=== PATIENT | male | born 1970 | race Caucasian/White ===

== ENCOUNTER 2016-10-15 06:15 | Day surgery (SDC) | payer MEDICARE ==
[2016-10-10 13:03] LABS: HEMATOCRIT 43.4 % (40.0-51.0); HEMOGLOBIN 14.2 g/dL (13.6-17.8)
--- NOTE | ~2016-10-15 | OP ---
Record Of Operation [facility] [address] [facility] [place]. [address] NAME: OG LEYVA II : 70 STATUS : REG [facility] PAT#: [id number] AGE: 45 ADM/REG DATE : 10/15/16 MR#: [id number] REPORT SERV DATE: 10/15/16 DICTATED BY: JUANCARLOS MONTERROSO DATE: 10/15/16 REPORT STATUS : Draft TRANSCRIBED BY: MODL DATE: 10/15/16 DATE OF PROCEDURE: 10/15/2016 PREOPERATIVE DIAGNOSES: 1. Left chronic otitis media with effusion. 2. Conductive hearing loss, left ear. 3. Bilateral chronic frontal sinusitis. 4. Bilateral chronic ethmoid sinusitis. 5. Bilateral chronic maxillary sinusitis. 6. Bilateral chronic sphenoid sinusitis. POSTOPERATIVE DIAGNOSES: 1. Left chronic otitis media with effusion. 2. Conductive hearing loss, left ear. 3. Bilateral chronic frontal sinusitis. 4. Bilateral chronic ethmoid sinusitis. 5. Bilateral chronic maxillary sinusitis. 6. Bilateral chronic sphenoid sinusitis. PROCEDURE: 1. Bilateral endoscopic total ethmoidectomy. 2. Bilateral endoscopic maxillary sinus antrostomy with polyp removal. 3. Bilateral endoscopic frontal sinusotomy. 4. Bilateral endoscopic sphenoidotomy. 5. Left myringotomy with tube placement. SURGEON: Juancarlos Monterroso M.D. ANESTHESIA: General. COMPLICATIONS: None. COUNTS: All counts correct following the procedure. ESTIMATED BLOOD LOSS: 25 mL. PREOPERATIVE INFORMED CONSENT: We discussed the risks and benefits of the surgery including, but not limited to bleeding, infection, possible CSF leak, possible ocular injury including blindness, possible recurrence of the polypoid disease requiring revision surgery. He understands the risks and benefits of surgery and consent is on chart. PROCEDURE IN DETAIL: The patient was brought to the operating suite, placed on the operative room table in supine position. General endotracheal anesthesia was initiated without incident. Left ear was addressed under the microscope. A myringotomy knife was used to make an incision in the anterior aspect of the pars tensa. Upon entering the middle ear space, a copious amount of clear fluid was suctioned from middle ear space until clear. Record Of Operation [facility] [address] [facility] [place]. [address] NAME: OG LEYVA II : 70 STATUS : REG [facility] PAT#: [id number] AGE: 45 ADM/REG DATE : 10/15/16 MR#: [id number] REPORT SERV DATE: 10/15/16 DICTATED BY: JUANCARLOS MONTERROSO DATE: 10/15/16 REPORT STATUS : Draft TRANSCRIBED BY: ASHA DATE: 10/15/16 Following this, a collar button ventilation tube was placed through the myringotomy site using alligator forceps. The attention was then taken to the nose and both the side of the nose were decongested using 1:1000 Adrenalin on pledgets. Then, the both inferior middle turbinate and uncinate processes were injected approximately 15 mL of 1% lidocaine and 1:100,000 epinephrine for hemostasis. Following this, on the left hand side of the nose using the Acclarent frontal sinus introducer, and using a transilluminated wire, the wire was advanced across the nasal frontal duct into the frontal sinus, and then once in place, the balloon was advanced over the wire, and dilated up to 10 atmospheres along the length of the nasofrontal duct. This was repeated on the right hand side in a similar fashion. Starting on the left had side the uncinate process was taken down using pediatric backbiting forceps and Xomed sinus shaver, and then there was noted to be extensive polypoid disease obstructing the maxillary sinus antrostomy and this was removed using the straight and backbiting Benjamin-Cut forceps, as well as Xomed sinus shaver. Then, the ethmoid bulla was opened widely using the Xomed sinus shaver. There was more copious polypoid disease within the ethmoid cavity, as well as allergic mucin. The basal lamella was then penetrated using Xomed sinus shaver. Then working from a posterior and anterior fashion along the lamina papyracea, the posterior and anterior ethmoid air cells were marsupialized. Following this, adrenaline-soaked pledget was placed in the middle ear space. Attention was taken the right side of nose in a fashion as described on the left, the right uncinate process was taken down as well as extensive polypoid disease obstructing the maxillary sinus antrostomy site, this was removed using straight and backbiting Benjamin-Cut forceps, as well as the Xomed sinus shaver. Then, the ethmoid bulla was opened widely using the Xomed sinus shaver, working from posterior and anterior fashion along the lamina papyracea, the posterior and anterior ethmoid air cells were marsupialized. The middle meatus was then packed with adrenaline soaked pledgets and then the attention was taken to sphenoid. Using again the Acclarent introducer, starting on the left hand side, then sphenoid sinus ostium was identified, and the wire was advanced across the ostium, then balloon was advanced over the wire, and dilated up to 10 atmospheres. This was repeated on the right hand side in a similar fashion. Then, the adrenaline packing was removed from both sides of the nose. Then, a Propel steroids stent was placed in both maxillary sinuses, as well as the ethmoid cavity bilaterally. The nasopharynx was suctioned free of any blood clots. The patient awakened from anesthesia and taken to recovery room in stable condition. ÁNGEL/ASHA Juancarlos Monterroso M.D. / [id number] CC: Red Carrizales M.D.
[~2016-10-15 06:15] MED LIST: CELEXA40 MG PO; DEPAKOT250 PO; EXELON9.5T PO; FLOMAX4 PO; NAMENDA10 MG PO; NUVIGIL250 MG PO; PCET PO; PROVIGIL2 PO; TRILIPIX135 MG PO
== END 2016-10-15 18:35 | disposition home or self-care (01) ==
LOC: SDC 06:15
PROVIDERS: Otolaryngology
PROC: 099X4ZZ Drainage of Left Sphenoid Sinus, Percutaneous Endoscopic Approach (ICD-10-PCS; 2016-10-15)
PROC: 099W4ZZ Drainage of Right Sphenoid Sinus, Percutaneous Endoscopic Approach (ICD-10-PCS; 2016-10-15)
PROC: 099T4ZZ Drainage of Left Frontal Sinus, Percutaneous Endoscopic Approach (ICD-10-PCS; 2016-10-15)
PROC: 099S4ZZ Drainage of Right Frontal Sinus, Percutaneous Endoscopic Approach (ICD-10-PCS; 2016-10-15)
PROC: 099600Z Drainage of Left Middle Ear with Drainage Device, Open Approach (ICD-10-PCS; 2016-10-15)
PROC: 09BV4ZZ Excision of Left Ethmoid Sinus, Percutaneous Endoscopic Approach (ICD-10-PCS; principal; 2016-10-15 07:45)
PROC: 09BU4ZZ Excision of Right Ethmoid Sinus, Percutaneous Endoscopic Approach (ICD-10-PCS; 2016-10-15 07:45)
DX: J32.8 Other chronic sinusitis (principal); H65.492 Other chronic nonsuppurative otitis media, left ear; H90.12 Conductive hearing loss, unilateral, left ear, with unrestricted hearing on the contralateral side; I10 Essential (primary) hypertension; E78.00 Pure hypercholesterolemia, unspecified; G47.33 Obstructive sleep apnea (adult) (pediatric); K21.9 Gastro-esophageal reflux disease without esophagitis; F32.9 Major depressive disorder, single episode, unspecified; Z87.820 Personal history of traumatic brain injury; Z98.890 Other specified postprocedural states; Z87.442 Personal history of urinary calculi
CPT/HCPCS: 85014; 85018; 88305; A9270-GY; C1726; J0330; J2250; J2370; J2405; J3010